=== PATIENT | female | born 1960 | race Caucasian/White ===

== ENCOUNTER 2016-02-24 11:12 | Day surgery (SDC) | payer OTHER ==
[~2016-02-24] VITALS: Ht 147.3 cm; Wt 55.6 kg
[2016-02-24 12:05] VITALS: Ht 147.3 cm; Wt 55.6 kg
[2016-02-24] MEDS ORDERED: IBUP-1542 PO (12:13)
[2016-02-24 12:28] VITALS: BP 120/67; PULSE 46; RESP 20
[2016-02-24] MEDS ORDERED: MIDAZOLAM 1 MG/ML 2 ML INJ ONE ×2 (13:24)
[2016-02-24] MEDS ORDERED: FENTAnyl 50 MCG/ML VIAL ONE (13:25)
[2016-02-24 14:10] VITALS: BP 100/54; PULSE 48; RESP 17
--- NOTE | 2016-02-25 08:42 | GILP ---
DATE OF PROCEDURE: PREOPERATIVE DIAGNOSIS: History of iron deficiency anemia, and patient had colonoscopy, apparently it was normal. She was sent for small bowel series which is also reported normal. The patient is u ndergoing EGD to look for any other causes for iron deficiency. DESCRIPTION OF PROCEDURE: The patient was put in left lateral decubitus after obtaining informed co nsent. She was sedated with 3 mg IV Versed, 50 mcg of fentanyl. Advanced an Olympus video upper en doscope into the esophagus, stomach, and duodenum. The findings are normal esophagus. Stomach show ed the antrum erosions and gastritis. This was photographed and random biopsy done to rule out H py chaparro, and duodenal bulb easily entered. Bulb and postbulbar area and second part of the duodenum no rmal. Then the scope was withdrawn. Fundus also examined on the way out by retroflexion. This was unremarkable. FINAL IMPRESSION: Antral erosions. This may be the etiology, but not certain, so we will continue to monitor the patient in your office and await for biopsy report. If any H pylori, will treat her so. Meanwhile, the patient will continue proton pump inhibitor. Dictated By: KIMBERLY WOODALL Conf#: [id number] DID#: [id number] CC: YONY STOLL MD;*End*
== END 2016-02-24 15:57 | disposition home or self-care (01) ==
LOC: GIL 11:12
PROVIDERS: ATTEND Internal Medicine
DX: K29.60 Other gastritis without bleeding (principal); D50.9 Iron deficiency anemia, unspecified
CPT/HCPCS: 43239; 88305; 88312; J2250; J3010; Z7610